=== PATIENT | female | born 1985 | race Caucasian/White ===

== ENCOUNTER 2016-12-10 11:54 | Emergency (ER) | payer MEDICAID, OTHER ==
[~2016-12-10] VITALS: Ht 165.1 cm; Wt 129.3 kg
[2016-12-10 11:57] VITALS: Ht 165.1 cm; Wt 129.3 kg
[2016-12-10] MEDS ORDERED: CEPH-443 PO (14:03)
[2016-12-10 14:13] VITALS: BP 124/74; RESP 16
--- NOTE | 2016-12-10 14:13 | ERD ---
ER Documentation Chief Complaint Chief Complaint abcess on mid back HPI This is a 31-year-old female who presents the emergency department today complaining of an abscess on the middle of her back for the past 4 months. States that her has picked at the area. Denies any fevers or chills. States she has not taken in medication. States she has not seen her primary care doctor about it. ROS All systems reviewed and are negative except as per history of present illness. Medications Home Meds Active Scripts Cephalexin* (Keflex*) 500 Mg Capsule, 500 MG PO QID for 7 Days, CAP Prov:MAURA FALK PA-C 12/10/16 Physical Exam Vitals Vital Signs Date Time Temp Pulse Resp B/P Pulse Ox O2 Delivery O2 Flow Rate FiO2 12/10/16 11:57 98.8 76 16 124/74 98 Physical Exam Const: morbidly obese, NAD Head: Atraumatic Eyes: Normal Conjunctiva ENT: Normal External Ears, Nose and Mouth. Neck: Full range of motion..~ No meningismus. Resp: Clear to auscultation bilaterally Cardio: Regular rate and rhythm, no murmurs Abd: Soft, non tender, non distended. Normal bowel sounds Skin: No petechiae or rashes Back: Mid Back with evidence of and evidence of 2 very small bumps with tissue exposed in skin folds. No purulent drainage. No erythema or warmth Ext: No cyanosis, or edema Neur: Awake and alert Psych: Normal Mood and Affect Procedures/MDM This a 31-year-old female who presents the emergency department today for an abscess on her back. On physical exam patient has 2 very tiny areas of what appear to tissue similar to pyogenic granuloma. Patient indicated that picks at her back. She has evidence of multiple blackheads. Patient is afebrile and otherwise well-appearing. There is no fluctuance. The area is in her skin fold of her back. I did have Dr. Louise see and evaluate the patient and she feels it is most consistent with hidradenitis and she recommended patient be given Keflex. Patient is afebrile and otherwise well-appearing. Low suspicion versus cellulitis, sepsis, deep space infection. Symptoms at this time is consistent with hidradenitis. Patient was given a prescription for Keflex. At this time the patient is stable for discharge and outpatient management. Patient should follow up with their PCP in the next 1-2 days. They may return to the emergency department sooner for any persistent or worsening of symptoms. Patient understood and agreed with the plan. Departure Diagnosis: Primary Impression: Hydradenitis Condition: Fair Patient Instructions: Hidradenitis Suppurativa, Abx Referrals: [facility] () Usted se narayanan hecho un examen mdico de control que le indica que no est en sanjuana condicin que requiera tratamiento urgente en el Departamento de Emergencia. Un estudio ms profundo y el tratamiento de montano condicin pueden esperar sin ningn riesgo hasta que usted sea atendida/o en el consultorio de montano mdico o sanjuaan cl soial. Es responsabilidad suya arreglar sanjuana myra para el seguimiento del alverto. MANEJO DE CONDICIONES NO URGENTES EN EL FUTURO 1) Si usted tiene un mdico de atencin primaria: Usted debera llamar a montano mdico de atencin primaria antes de venir al departamento de emergencia. Despus de las horas de consultorio, montano doctor o montano asociado/a est disponible por telfono. El mdico o enfermero de andrea en el servicio telefnico puede asesorarle por marya medio para atender el problema, o alverto contrario se puede programar sanjuana myra. 2) Si usted no tiene un mdico de atencin primaria: Llame al mdico o clnica de referencia que aparece abajo altaf las horas de consultorio para hacer sanjuana myra para que le vean. CLINICAS: [facility] [phone] [facility] [phone] [facility] [phone] [address] [facility] [phone] [facility] [phone] 6801 [facility] [phone] [address] Additional Instructions: Llame al doctor MAANA y bere sanjuana MYRA PARA DENTRO DE 1-2 MARTIN.Dgale a la secretaria que nosotros le instruimos hacer esta myra.Avise o llame si montano condicin se empeora antes de la myra. Regresa aqui si peor o no mejor. Take antibiotics as prescribed Keep area clean MAURA FALK PA-C Dec 10, 2016 14:13
--- NOTE | 2016-12-10 14:13 | ERD ---
ER Documentation Chief Complaint Chief Complaint abcess on mid back HPI This is a 31-year-old female who presents the emergency department today complaining of an abscess on the middle of her back for the past 4 months. States that her has picked at the area. Denies any fevers or chills. States she has not taken in medication. States she has not seen her primary care doctor about it. ROS All systems reviewed and are negative except as per history of present illness. Medications Home Meds Active Scripts Cephalexin* (Keflex*) 500 Mg Capsule, 500 MG PO QID for 7 Days, CAP Prov:MAURA FALK PA-C 12/10/16 Physical Exam Vitals Vital Signs Date Time Temp Pulse Resp B/P Pulse Ox O2 Delivery O2 Flow Rate FiO2 12/10/16 11:57 98.8 76 16 124/74 98 Physical Exam Const: morbidly obese, NAD Head: Atraumatic Eyes: Normal Conjunctiva ENT: Normal External Ears, Nose and Mouth. Neck: Full range of motion..~ No meningismus. Resp: Clear to auscultation bilaterally Cardio: Regular rate and rhythm, no murmurs Abd: Soft, non tender, non distended. Normal bowel sounds Skin: No petechiae or rashes Back: Mid Back with evidence of and evidence of 2 very small bumps with tissue exposed in skin folds. No purulent drainage. No erythema or warmth Ext: No cyanosis, or edema Neur: Awake and alert Psych: Normal Mood and Affect Procedures/MDM This a 31-year-old female who presents the emergency department today for an abscess on her back. On physical exam patient has 2 very tiny areas of what appear to tissue similar to pyogenic granuloma. Patient indicated that picks at her back. She has evidence of multiple blackheads. Patient is afebrile and otherwise well-appearing. There is no fluctuance. The area is in her skin fold of her back. I did have Dr. Louise see and evaluate the patient and she feels it is most consistent with hidradenitis and she recommended patient be given Keflex. Patient is afebrile and otherwise well-appearing. Low suspicion versus cellulitis, sepsis, deep space infection. Symptoms at this time is consistent with hidradenitis. Patient was given a prescription for Keflex. At this time the patient is stable for discharge and outpatient management. Patient should follow up with their PCP in the next 1-2 days. They may return to the emergency department sooner for any persistent or worsening of symptoms. Patient understood and agreed with the plan. Departure Diagnosis: Primary Impression: Hydradenitis Condition: Fair Patient Instructions: Hidradenitis Suppurativa, Abx Referrals: [facility] () Usted se narayanan hecho un examen mdico de control que le indica que no est en sanjuana condicin que requiera tratamiento urgente en el Departamento de Emergencia. Un estudio ms profundo y el tratamiento de montano condicin pueden esperar sin ningn riesgo hasta que usted sea atendida/o en el consultorio de montano mdico o sanjuana cl soila. Es responsabilidad suya arreglar sanjuana myra para el seguimiento del alverto. MANEJO DE CONDICIONES NO URGENTES EN EL FUTURO 1) Si usted tiene un mdico de atencin primaria: Usted debera llamar a montano mdico de atencin primaria antes de venir al departamento de emergencia. Despus de las horas de consultorio, montano doctor o montano asociado/a est disponible por telfono. El mdico o enfermero de andrea en el servicio telefnico puede asesorarle por marya medio para atender el problema, o alverto contrario se puede programar sanjuana myra. 2) Si usted no tiene un mdico de atencin primaria: Llame al mdico o clnica de referencia que aparece abajo altaf las horas de consultorio para hacer sanjuana myra para que le vean. CLINICAS: [facility] [phone] [facility] [phone] [facility] [phone] [facility] [phone] [facility] [phone] 6801 [facility] [phone] [address] Additional Instructions: Llame al doctor MAANA y bere sanjuana MYRA PARA DENTRO DE 1-2 MARTIN.Dgale a la secretaria que nosotros le instruimos hacer esta myra.Avise o llame si montano condicin se empeora antes de la myra. Regresa aqui si peor o no mejor. Take antibiotics as prescribed Keep area clean MAURA FALK PA-C Dec 10, 2016 14:13
--- NOTE | 2016-12-10 14:13 | ERD ---
ER Documentation Chief Complaint Chief Complaint abcess on mid back HPI This is a 31-year-old female who presents the emergency department today complaining of an abscess on the middle of her back for the past 4 months. States that her has picked at the area. Denies any fevers or chills. States she has not taken in medication. States she has not seen her primary care doctor about it. ROS All systems reviewed and are negative except as per history of present illness. Medications Home Meds Active Scripts Cephalexin* (Keflex*) 500 Mg Capsule, 500 MG PO QID for 7 Days, CAP Prov:MAURA FALK PA-C 12/10/16 Physical Exam Vitals Vital Signs Date Time Temp Pulse Resp B/P Pulse Ox O2 Delivery O2 Flow Rate FiO2 12/10/16 11:57 98.8 76 16 124/74 98 Physical Exam Const: morbidly obese, NAD Head: Atraumatic Eyes: Normal Conjunctiva ENT: Normal External Ears, Nose and Mouth. Neck: Full range of motion..~ No meningismus. Resp: Clear to auscultation bilaterally Cardio: Regular rate and rhythm, no murmurs Abd: Soft, non tender, non distended. Normal bowel sounds Skin: No petechiae or rashes Back: Mid Back with evidence of and evidence of 2 very small bumps with tissue exposed in skin folds. No purulent drainage. No erythema or warmth Ext: No cyanosis, or edema Neur: Awake and alert Psych: Normal Mood and Affect Procedures/MDM This a 31-year-old female who presents the emergency department today for an abscess on her back. On physical exam patient has 2 very tiny areas of what appear to tissue similar to pyogenic granuloma. Patient indicated that picks at her back. She has evidence of multiple blackheads. Patient is afebrile and otherwise well-appearing. There is no fluctuance. The area is in her skin fold of her back. I did have Dr. Louise see and evaluate the patient and she feels it is most consistent with hidradenitis and she recommended patient be given Keflex. Patient is afebrile and otherwise well-appearing. Low suspicion versus cellulitis, sepsis, deep space infection. Symptoms at this time is consistent with hidradenitis. Patient was given a prescription for Keflex. At this time the patient is stable for discharge and outpatient management. Patient should follow up with their PCP in the next 1-2 days. They may return to the emergency department sooner for any persistent or worsening of symptoms. Patient understood and agreed with the plan. Departure Diagnosis: Primary Impression: Hydradenitis Condition: Fair Patient Instructions: Hidradenitis Suppurativa, Abx Referrals: [facility] () Usted se narayanan hecho un examen mdico de control que le indica que no est en sanjuana condicin que requiera tratamiento urgente en el Departamento de Emergencia. Un estudio ms profundo y el tratamiento de montano condicin pueden esperar sin ningn riesgo hasta que usted sea atendida/o en el consultorio de montano mdico o sanjuana cl soila. Es responsabilidad suya arreglar sanjuana myra para el seguimiento del alverto. MANEJO DE CONDICIONES NO URGENTES EN EL FUTURO 1) Si usted tiene un mdico de atencin primaria: Usted debera llamar a montano mdico de atencin primaria antes de venir al departamento de emergencia. Despus de las horas de consultorio, montano doctor o montano asociado/a est disponible por telfono. El mdico o enfermero de andrea en el servicio telefnico puede asesorarle por marya medio para atender el problema, o alverto contrario se puede programar sanjuana myra. 2) Si usted no tiene un mdico de atencin primaria: Llame al mdico o clnica de referencia que aparece abajo altaf las horas de consultorio para hacer sanjuana myra para que le vean. CLINICAS: [facility] [phone] [facility] [phone] [facility] [phone] [address] [facility] [phone] [facility] [phone] 6801 [facility] [phone] [address] Additional Instructions: Llame al doctor MAANA y bere sanjuana MYRA PARA DENTRO DE 1-2 MARTIN.Dgale a la secretaria que nosotros le instruimos hacer esta myra.Avise o llame si montano condicin se empeora antes de la myra. Regresa aqui si peor o no mejor. Take antibiotics as prescribed Keep area clean MAURA FALK PA-C Dec 10, 2016 14:13
== END 2016-12-10 14:13 | disposition home or self-care (01) ==
LOC: FTE 11:54
DX: L73.2 Hidradenitis suppurativa (principal)
CPT/HCPCS: 99283